=== PATIENT | male | born 1945 | race Caucasian/White ===

== ENCOUNTER 2017-02-23 19:53 | Emergency (ER) | payer MEDICARE, OTHER ==
[~2017-02-23] VITALS: Ht 182.9 cm; Wt 104.2 kg
[~2017-02-23 19:53] MED LIST: COLC0.6T37 PO; DIGO250T PO; HYDR-3240 PO; METO50TA82 PO; RIVA20TA PO; ZOLP10TA PO
[2017-02-23] MEDS ORDERED: SODIUM CHLORIDE 0.9% 1,000ML IV ONE (20:30)
[2017-02-23] MEDS ORDERED: SODIUM CHLORIDE FLUSH 10ML SYR IVF ONE (20:30)
[2017-02-23] MEDS ORDERED: LISI2.5T PO (21:12)
[2017-02-23] MEDS ORDERED: PRAV10TA2 PO (21:12)
[2017-02-23 21:15] LABS: BLOOD UREA NITROGEN 17 mg/dL (7-18)
[2017-02-23 22:30] VITALS: BP 132/96
== END 2017-02-23 22:32 | disposition home or self-care (01) ==
LOC: ED 22:26
DX: R31.0 Gross hematuria (principal); N20.0 Calculus of kidney; I10 Essential (primary) hypertension; I48.91 Unspecified atrial fibrillation; I25.2 Old myocardial infarction
CPT/HCPCS: 36415; 74176; 80048; 81001; 82040; 85025; 96360; 96361; 99285; J7030

== ENCOUNTER → 2017-03-22 | Outpatient (CLI) | payer MEDICARE, OTHER ==
[~2017-03-22] MED LIST changes: +LISI2.5T PO; +PRAV10TA2 PO
== END | disposition home or self-care (01) ==
LOC: CFH 15:38
PROVIDERS: ATTEND Urology
DX: N28.89 Other specified disorders of kidney and ureter (principal)
CPT/HCPCS: 74000

== ENCOUNTER → 2017-04-23 | Outpatient (CLI) | payer MEDICARE, OTHER ==
[~2017-04-23] MED LIST changes: +OMNIPAQUE 350 MG/ML, 150 ML BOTTLE ONE
== END | disposition home or self-care (01) ==
LOC: CFH 12:23
PROVIDERS: ATTEND Urology
DX: N20.0 Calculus of kidney (principal); K80.20 Calculus of gallbladder without cholecystitis without obstruction; M43.17 Spondylolisthesis, lumbosacral region; K40.20 Bilateral inguinal hernia, without obstruction or gangrene, not specified as recurrent; Z90.49 Acquired absence of other specified parts of digestive tract
CPT/HCPCS: 74178; 82565; Q9967

== ENCOUNTER → 2018-06-09 | Outpatient (CLI) | payer MEDICARE, OTHER ==
[~2018-06-09] MED LIST changes: +ALLO300T PO; +CELE200C PO; +GLIP2.5T3 PO; +LISI-170 PO; +MAGN400T7 PO; -OMNIPAQUE 350 MG/ML, 150 ML BOTTLE ONE; +OXYC1TAB7 PO; +POTA10TA31 PO; +PRAV40TA2 PO; +TRAM50TA2 PO
== END | disposition home or self-care (01) ==
LOC: CFH 14:28
PROVIDERS: ATTEND Physical Medicine & Rehabilitation
DX: M43.07 Spondylolysis, lumbosacral region (principal)
CPT/HCPCS: 72148

== ENCOUNTER → 2018-09-26 | Outpatient (CLI) | payer MEDICARE, OTHER | END | disposition home or self-care (01) | LOC: CVU 08:59 | PROVIDERS: ATTEND Internal Medicine Cardiovascular Disease | DX: I65.23 Occlusion and stenosis of bilateral carotid arteries (principal); I10 Essential (primary) hypertension; E78.5 Hyperlipidemia, unspecified; I48.91 Unspecified atrial fibrillation; I25.2 Old myocardial infarction; Z95.5 Presence of coronary angioplasty implant and graft | CPT/HCPCS: 93880 ==

== ENCOUNTER → 2018-11-03 | Outpatient (CLI) | payer MEDICARE, OTHER | END | disposition home or self-care (01) | LOC: CFH 15:19 | PROVIDERS: ATTEND Urology | DX: R31.0 Gross hematuria (principal) | CPT/HCPCS: 76770 ==

== ENCOUNTER → 2019-01-20 | Outpatient (CLI) | payer MEDICARE, OTHER ==
[~2019-01-20] MED LIST changes: +CHOL500045 PO; +FINA5TAB4 PO; +METO-99 PO; +TAMS-11 PO
[2019-01-20 14:08] LABS: BASOPHILS # (AUTO) 0.03 x10^3/uL (0-0.1); BASOPHILS % (AUTO) 0 % (0-1); EOSINOPHILS # (AUTO) 0.14 x10^3/uL (0-0.4); EOSINOPHILS % (AUTO) 2 % (1-7); LYMPHOCYTES # (AUTO) 3.62 x10^3/uL (1-3.4); LYMPHOCYTES % (AUTO) 50 % (22-44); MD NO; MEAN CORPUSCULAR HEMOGLOBIN 34.3 pg (27.5-34.5); MEAN CORPUSCULAR HGB CONC 33.8 g/dL (33.2-36.2); MEAN CORPUSCULAR VOLUME 101.3 fL (81-97); MONOCYTES % (AUTO) 10 % (2-9); NEUTROPHILS # (AUTO) 2.81 x10^3/uL (1.8-6.8); NEUTROPHILS % (AUTO) 39 % (42-75); PLATELET COUNT 175 x10^3/uL (130-400); RED BLOOD COUNT 4.71 x10^6/uL (4.38-5.82); RED CELL DISTRIBUTION WIDTH 13.3 % (9.4-14.8)
[2019-01-20 14:11] LABS: INTERNATIONAL NORMALIZED RATIO 1.2 (0.93-1.1); PROTHROMBIN TIME 12.5 Seconds (9.6-11.5)
[2019-01-20 14:13] LABS: ALANINE AMINOTRANSFERASE 88 U/L (12-78); ALBUMIN 3.7 g/dL (3.4-5.0); ANION GAP 6 mmol/L (5-15); CALCIUM 9.1 mg/dL (8.5-10.1); CHLORIDE 108 mmol/L (98-107); CREATININE 1.04 mg/dL (0.7-1.3)
[2019-01-20 14:15] LABS: ALKALINE PHOSPHATASE 147 U/L (45-117); BILIRUBIN,TOTAL 1.5 mg/dL (0.2-1.0); TOTAL PROTEIN 7.7 g/dL (6.4-8.2)
[2019-01-20 14:26] LABS: HEMOGLOBIN A1C 6.3 % (4.2-6.3)
== END | disposition home or self-care (01) ==
LOC: STAR 12:28
PROVIDERS: ATTEND Orthopaedic Surgery
DX: Z01.818 Encounter for other preprocedural examination (principal); S32.45 Transverse fracture of acetabulum; M17.0 Bilateral primary osteoarthritis of knee; I48.91 Unspecified atrial fibrillation; X58.XXXD Exposure to other specified factors, subsequent encounter; R79.89 Other specified abnormal findings of blood chemistry
CPT/HCPCS: 36415; 80053; 83036; 85025; 85610; 85730; 87081; 93005

== ENCOUNTER → 2020-08-13 | Outpatient (CLI) | payer MEDICARE, OTHER ==
[~2020-08-13] MED LIST changes: -DIGO250T PO; +DIGO250T3 PO; -MAGN400T7 PO; +MAGN400T9 PO; +MELO7.5T31 PO; +OXYC5TAB2 PO
== END | disposition home or self-care (01) ==
LOC: CVU 08:24
PROVIDERS: ATTEND Internal Medicine Cardiovascular Disease
DX: I08.3 Combined rheumatic disorders of mitral, aortic and tricuspid valves (principal); I11.9 Hypertensive heart disease without heart failure; I25.10 Atherosclerotic heart disease of native coronary artery without angina pectoris
CPT/HCPCS: 93306